=== PATIENT | female | born 1970 | race Caucasian/White ===

== ENCOUNTER 2020-04-22 10:11 | Emergency (ER) | payer OTHER, SELFPAY ==
[2020-04-22 10:15] VITALS: BP 133/82; PULSE 96; RESP 18; TEMP 36.6; O2SAT 98; BMI 20.1
--- NOTE | 2020-04-22 10:26 | ED_ITS ---
HPI - Abdominal Pain <Wilbert AUGUSTO Rider - Last Filed: 04/22/20 13:46> General Chief Complaint: Nausea/Vomiting/Diarrhea Stated Complaint: Dizzy ,throwing up after surgery 3 months ago Time Seen by Provider: 04/22/20 10:14 Source: patient Mode of arrival: Ambulatory Limitations: no limitations History of Present Illness HPI narrative: This is a 49 year female, nonsmoker, who has past medical history significant for anxiety, depression, s/p hemorrhoidectomy with polypectomy 3 months ago presents to ED. patient reports since then patient has runny watery stools with intermittent generalized abdominal pain. Since the hemorrhoids deck LEANA and polypectomy she was on stool softener initially she contributed her symptoms to stool softener, however without taking stool softener watery stools continued. Patient feels very quick urge and at times she does not make it to bathroom in time and has stool incontinence problem. She is currently very busy at work and feeling stressed. She had lost some weight with this symptoms. She feels even depressed from her current symptoms. She denies fever, chills. Yesterday she fell nauseous and had taken Zofran prescribed for postop which somewhat improved her symptoms. She reports feeling weak and lethargic and not feeling generally well. Patient denies black, tarry, bloody stools. So far C diff test was done which was negative. Patient denies chest pain, dyspnea, known exposure to COVID patient's. She has been using Lomotil without much improvement. However, she had 1 episode of formed stool last week. Patient denies camping, taking unusual food or water, near contact with animals around the time her symptoms started. Patient reports she had similar symptoms many years ago when she had upper GI ulcer/bleed. According to the patient, Dr. Rodney has planned to do another stool test and possible endoscopy. Related Data Home Medications Medication Instructions Recorded Confirmed Carolyn 1 tab PO DAILY 04/22/20 04/22/20 Flonase 1 spray INTRANASAL DAILY 04/22/20 04/22/20 diphenoxylate-atropine 1 tab PO PRN PRN 04/22/20 04/22/20 duloxetine 1 mg PO DAILY 04/22/20 04/22/20 ondansetron 1 mg PO PRN PRN MDD 4 04/22/20 04/22/20 Previous Rx's Medication Instructions Recorded ondansetron 4 mg PO Q8H PRN #7 tab 04/22/20 Allergies Allergy/AdvReac Type Severity Reaction Status Date / Time Penicillin Allergy Unknown Uncoded 07/12/17 12:53 Review of Systems <GLORIA GrissomP - Last Filed: 04/22/20 13:46> Review of Systems Narrative: General: Denies fever, chills, fatigue, malaise, sweats. HEENT: Denies sinus pain, ear pain, sore throat, difficulty swallowing, dizziness. Respiratory: Denies dyspnea, cough, wheezing, hemoptysis, sputum. Cardiovascular: Denies chest pain, palpitations, orthopnea, edema. Gastrointestinal: See HPI : Denies dysuria, frequency, incontinence, hematuria, urinary retention. Musculoskeletal: Denies weakness, joint pain or bony pain. Skin: Denies rash, skin lesions, or other. Neurologic: Denies (+) weakness, headache, numbness, change in speech, confusion, seizures, incoordination. Psychiatric: No concerning psychosocial issues. 12-point review of systems is negative except for those stated above. Patient History <GLORIA GrissomP - Last Filed: 04/22/20 13:46> Social History Smoking Status: Never smoker Exam <GLORIA GrissomP - Last Filed: 04/22/20 13:46> Narrative Exam Narrative: GEN: Alert, oriented x 3, thinn appearing, and in no acute dis tress. Head: Normal cephalic, atraumatic. No scalp or temporal tenderness, palpable mass or rash. EYES: Pupils are equal, round, and reactive to light and accommodation. Extraocular muscles are intact bilaterally. There is no subconjunctival hemorrhage, exudate and sclera non-icteric. ENT: Hearing grossly intact. Nose without bleeding, purulent discharge or deviation. Facial sinuses nontender to palpate. Mucous membrane moist, no mucosal lesion. Throat without erythema, tonsillar hypertrophy or exudate. Uvula in midline, airway patent. Neck: Trachea in midline. No JVD, non-tender without lymphadenopathy. No masses or thyroid megaly. Supple, non-tender and no meningeal signs. CARDIAC: Normal regular rate and rhythm without murmurs, gallops, or rubs. No chest wall tenderness. No peripheral edema, cyanosis or pallor. Capillary refill is less than 2 seconds. RESPIRATORY: Lungs are clear to auscultate bilaterally. No cough, wheezes, rales, or rhonchi. No stridor, respiratory distress, increase work of breathing, or accessary muscle used. ABD: Abdomen soft, nontender and non-distended. No guarding or rebound tenderness to palpate. Bowel sounds are normal in all 4 quadrants. There is no palpable masses or organomegaly. Rectal exam done by DANY Mahoney stand-by, appreciated small size external hemorrhoids and had streak of blood obtained on gloved finger during hemoccult test. No stool noticed on gloved finger. EXT: Full painless ROM of all extremities with no loss of sensation, strength, effusion or edema. SKIN: Warm, dry, normal color for patient. No erythema, lesions or rash over visible areas. BACK: Nontender without deformity or crepitance. No flank tenderness. NEUROLOGICAL: Alert and oriented to place, time and person. Sensation and motor function intact bilaterally. No facial droops, dysphasia. PSYCHIATRIC: Good judgement and reason, without hallucinations, abnormal affect or abnormal behaviors during the examination. Patient is not suicidal. Initial Vital Signs Initial Vital Signs: Vital Signs Temperature 97.8 F 04/22/20 10:15 Pulse Rate 96 H 04/22/20 10:15 Respiratory Rate 18 04/22/20 10:15 Blood Pressure 133/82 04/22/20 10:15 Pulse Oximetry 98 04/22/20 10:15 <Vahid Pascual DO - Last Filed: 04/22/20 13:51> Initial Vital Signs Initial Vital Signs: Vital Signs Temperature 97.8 F 04/22/20 10:15 Pulse Rate 96 H 04/22/20 10:15 Respiratory Rate 18 04/22/20 10:15 Blood Pressure 133/82 04/22/20 10:15 Pulse Oximetry 98 04/22/20 10:15 Scores <AUGUSTO Grissom - Last Filed: 04/22/20 13:46> GCS Manny coma scale eye opening: Spontaneous Manny coma scale verbal response: Orientated [place] coma scale motor response: Obey commands [place] coma scale total score: 15 Course <AUGUSTO Grissom - Last Filed: 04/22/20 13:46> Orders Ordered: ED Orders 04/22/20 10:25 EKG-12 Lead Stat 04/22/20 10:45 Complete Blood Count AUTO DIFF Stat Comprehensive Metabolic Panel Stat Lactate (Lactic Acid) Stat Lipase Stat Magnesium Stat 04/22/20 11:35 CT abdomen pelvis w con Stat Discontinued Medications Sodium Chloride (Normal Saline 0.9%) 1,000 mls @ 999 mls/hr IV CONT MARGY Last Infusion: 04/22/20 11:48 Dose: 0 mls/hr Documented by: Admin: 04/22/20 10:41 Dose: 999 mls/hr Documented by: JERRY Ondansetron HCl (Ondansetron 4 Mg Odt) 4 mg SL NOW ONE Stop: 04/22/20 10:26 Last Admin: 04/22/20 10:41 Dose: 4 mg Documented by: JERRY Reevaluation(s) Reevaluation #1: Patient reports nausea improving. Time: 10:48 Reevaluation #2: Patient trying p.o. challenge. Time: 11:48 Vital Signs Vital signs: Vital Signs - 8 hr 04/22/20 10:15 04/22/20 11:35 Temperature 97.8 F Pulse Rate 96 H 71 Respiratory Rate 18 Blood Pressure 133/82 155/74 H Pulse Oximetry 98 100 <Vahid Pascual DO - Last Filed: 04/22/20 13:51> Orders Ordered: ED Orders 04/22/20 10:25 EKG-12 Lead Stat 04/22/20 10:45 Complete Blood Count AUTO DIFF Stat Comprehensive Metabolic Panel Stat Lactate (Lactic Acid) Stat Lipase Stat Magnesium Stat 04/22/20 11:35 CT abdomen pelvis w con Stat Discontinued Medications Sodium Chloride (Normal Saline 0.9%) 1,000 mls @ 999 mls/hr IV CONT MARGY Last Infusion: 04/22/20 11:48 Dose: 0 mls/hr Documented by: Admin: 04/22/20 10:41 Dose: 999 mls/hr Documented by: JERRY Ondansetron HCl (Ondansetron 4 Mg Odt) 4 mg SL NOW ONE Stop: 04/22/20 10:26 Last Admin: 04/22/20 10:41 Dose: 4 mg Documented by: JERRY Vital Signs Vital signs: Vital Signs - 8 hr 04/22/20 10:15 04/22/20 11:35 Temperature 97.8 F Pulse Rate 96 H 71 Respiratory Rate 18 Blood Pressure 133/82 155/74 H Pulse Oximetry 98 100 MDM - Abdominal Pain <Wilbert Wilfredo-AUGUSTO Villar - Last Filed: 04/22/20 13:46> Differential Diagnosis Differential diagnosis: Likely abdominal pain, gastroenteritis and other (Electrolytes imbalance, bladder infection, ACS, IBS, food allergies) Medical Records Attestation: I reviewed the patient's medical records. Lab Data Attestation: I reviewed the patient's lab results. Result diagrams: 04/22/20 10:45 04/22/20 10:45 Labs: Lab Results 04/22/20 04/22/20 04/22/20 Range/Units 10:45 10:45 10:45 WBC 8.0 (4.5-11.0) X10^3/uL RBC 4.63 (4.0-5.2) X10^6/uL Hgb 14.5 (12.0-16.0) g/dL Hct 43.8 (36-46) % MCV 94.7 (80-100) fL MCH 31.3 (26-34) PG MCHC 33.0 (30-36) % RDW 13.5 (11.6-14.8) % Plt Count 247 (150-400) X10^3/uL Neut % (Auto) 74.8 (50-75) % Lymph % (Auto) 18.3 L (25-40) % Young % (Auto) 6.0 (3-14) % Eos % (Auto) 0.4 L (2-4) % Baso % (Auto) 0.5 (0-2) % Neut # (Auto) 5900 (7166-4296) /uL Lymph # (Auto) 1500 (0208-5064) /uL Young # (Auto) 500 (0-900) /uL Eos # (Auto) 0 (0-450) /uL Baso # (Auto) 0 (0-100) /uL Sodium 137 (137-145) mmol/L Potassium 3.8 (3.4-5.1) mmol/L Chloride 109 H (98-107) mmol/L Carbon Dioxide 25 (22-32) mmol/L BUN 17 (7-17) mg/dL Creatinine 0.75 (0.52-1.04) mg/dL Estimated GFR > 60.0 (>60) mL/min BUN/Creatinine Ratio 22.7 H (6-22) Glucose 101 H (70-100) mg/dL Lactate 0.9 (0.7-2.1) mmol/L Calcium 9.3 (8.4-10.2) mg/dL Magnesium (1.6-2.3) mg/dL Total Bilirubin 0.4 (0.2-1.3) mg/dL AST 16 (14-36) IU/L ALT 11 (<35) IU/L Alkaline Phosphatase 23 L (38-126) U/L Total Protein 6.0 L (6.3-8.2) g/dL Albumin 3.7 (3.5-5.0) g/dL Globulin 2.3 (1.7-4.1) g/dL Albumin/Globulin Ratio 1.6 (1.0-2.8) Lipase 285 (23-300) U/L 04/22/20 Range/Units 10:45 WBC (4.5-11.0) X10^3/uL RBC (4.0-5.2) X10^6/uL Hgb (12.0-16.0) g/dL Hct (36-46) % MCV (80-100) fL MCH (26-34) PG MCHC (30-36) % RDW (11.6-14.8) % Plt Count (150-400) X10^3/uL Neut % (Auto) (50-75) % Lymph % (Auto) (25-40) % Young % (Auto) (3-14) % Eos % (Auto) (2-4) % Baso % (Auto) (0-2) % Neut # (Auto) (4715-1017) /uL Lymph # (Auto) (6181-3271) /uL Young # (Auto) (0-900) /uL Eos # (Auto) (0-450) /uL Baso # (Auto) (0-100) /uL Sodium (137-145) mmol/L Potassium (3.4-5.1) mmol/L Chloride (98-107) mmol/L Carbon Dioxide (22-32) mmol/L BUN (7-17) mg/dL Creatinine (0.52-1.04) mg/dL Estimated GFR (>60) mL/min BUN/Creatinine Ratio (6-22) Glucose (70-100) mg/dL Lactate (0.7-2.1) mmol/L Calcium (8.4-10.2) mg/dL Magnesium 1.9 (1.6-2.3) mg/dL Total Bilirubin (0.2-1.3) mg/dL AST (14-36) IU/L ALT (<35) IU/L Alkaline Phosphatase (38-126) U/L Total Protein (6.3-8.2) g/dL Albumin (3.5-5.0) g/dL Globulin (1.7-4.1) g/dL Albumin/Globulin Ratio (1.0-2.8) Lipase (23-300) U/L Point of care testing: Point of Care Testing Test Results Negative Urine Dip Bedside Urine Glucose Negative Bedside Urine Bilirubin - Negative Bedside Urine Ketone - Negative Urine Specific Stratton 1.015 Bedside Urine Occult Blood - Negative Bedside Urine pH 6.0 Bedside Urine Protein - Negative Bedside Urine Urobilinogen - Negative Bedside Urine Nitrite - Negative Bedside Urine Leukocytes - Negative Esterase Imaging Data CT scan - abdomen/pelvis: Radiologist's Impression: [address] [id number] Scan ReportSigned Patient: Светлана Bradford#: [id number]: 1970Acct:[id number]/Sex: 49 / FDate of Service: 04/22/20Loc: ED Accession Number: [id number] Procedure: CT abdomen pelvis w con Ordering Provider: Wilbert Rider [facility] PROCEDURE: CT ABDOMEN PELVIS W CON INDICATIONS: abd pain, n/v/d TECHNIQUE: After the administration of intravenous contrast, 5 mm thick sections acquired from the diaphragm to the symphysis. 5 mm coronal and sagittal reformats were acquired. For radiation dose reduction, the following was used: automated exposure control, adjustment of mA and/or kV according to patient size. COMPARISON: None. FINDINGS: Image quality: Excellent. ABDOMEN: Lung bases: Lung bases are clear. Heart size is normal. Solid organs: Liver is normal in size and enhancement. Gallbladder mucosa appears slightly hyperemic. Biliary system is non dilated. Pancreas enhances normally. Spleen is normal in size and enhancement. No adrenal nodules. Kidneys demonstrate normal size and enhancement, without hydronephrosis. Peritoneum and bowel: Bowel loops demonstrate normal wall thickness and caliber. No free fluid or air. Nodes and vessels: No retroperitoneal or mesenteric adenopathy by size criteria. Aorta and inferior vena cava are normal in size. Miscellaneous: No ventral hernias. PELVIS: Genitourinary: Bladder wall thickness is normal. Miscellaneous: No inguinal hernias or adenopathy. Normal appendix found right lower quadrant. Bones: No suspicious bony lesions. No vertebral body compression fractures. IMPRESSION: Normal appendix found right lower quadrant. Note is made of slight hyperemia of the gallbladder mucosa, but a calcified gallstone or evidence of adjacent free fluid is not found. Please note that radiolucent gallstones may not be accurately detected by CT scanning and depending on the clinical status follow-up by gallbladder ultrasound may be warranted. Dictated by: Sarmad Albarran M.D. on 04/22/2020 at 11:43 Approved by: Sarmad Albarran M.D. on 04/22/2020 at 11:46 ECG Data Attestation: I personally reviewed and interpreted this ECG as follows: Prior ECG tracings: not available for review Interpretation: Sinus Alphonse rate at 57. Normal Thoreau. NM interval 132, QRS duration 82, QT/QTC 400/[address] changes MDM Narrative Medical decision making narrative: This is a 49-year-old female who presents to ED with chronic diarrhea with occasional stool incontinence due to urgency for last 3 months after hemorrhoidectomy and polypectomy with chief complain of generalized not feeling well, lethargic, occasional abdominal pain, nausea. Physical exam was unremarkable. Patient's nausea was well managed with 1 dose of Zofran IV. Labs are assuring. No indications for UTI. Patient was not able to provide stool sample in ED and states she had taken Lomotil before coming into ED. appreciated small external hemorrhoids with scant amount of bleeding during rectal exam, no stools felt and obtained from the rectal exam. Abdomen/pelvis CT imaging test ordered and obtained without acute findings. Patient denies changing diet or incorporating new food in her diet. Patient tried probiotics but reports symptoms appears to be worse so she is not taking it at this time. Patient advised to try bland diet, bananas, peanut butter or etc to bulk up the stool consistency. Return precautions were discussed with patient and patient highly advised to follow-up with GI specialist. She verbalized understanding in agreement with the treatment plan. <Vahid Pascual, DO - Last Filed: 04/22/20 13:51> Lab Data Labs: Lab Results 04/22/20 04/22/20 04/22/20 Range/Units 10:45 10:45 10:45 WBC 8.0 (4.5-11.0) X10^3/uL RBC 4.63 (4.0-5.2) X10^6/uL Hgb 14.5 (12.0-16.0) g/dL Hct 43.8 (36-46) % MCV 94.7 (80-100) fL MCH 31.3 (26-34) PG MCHC 33.0 (30-36) % RDW 13.5 (11.6-14.8) % Plt Count 247 (150-400) X10^3/uL Neut % (Auto) 74.8 (50-75) % Lymph % (Auto) 18.3 L (25-40) % Young % (Auto) 6.0 (3-14) % Eos % (Auto) 0.4 L (2-4) % Baso % (Auto) 0.5 (0-2) % Neut # (Auto) 5900 (1624-7235) /uL Lymph # (Auto) 1500 (3019-7689) /uL Young # (Auto) 500 (0-900) /uL Eos # (Auto) 0 (0-450) /uL Baso # (Auto) 0 (0-100) /uL Sodium 137 (137-145) mmol/L Potassium 3.8 (3.4-5.1) mmol/L Chloride 109 H (98-107) mmol/L Carbon Dioxide 25 (22-32) mmol/L BUN 17 (7-17) mg/dL Creatinine 0.75 (0.52-1.04) mg/dL Estimated GFR > 60.0 (>60) mL/min BUN/Creatinine Ratio 22.7 H (6-22) Glucose 101 H (70-100) mg/dL Lactate 0.9 (0.7-2.1) mmol/L Calcium 9.3 (8.4-10.2) mg/dL Magnesium (1.6-2.3) mg/dL Total Bilirubin 0.4 (0.2-1.3) mg/dL AST 16 (14-36) IU/L ALT 11 (<35) IU/L Alkaline Phosphatase 23 L (38-126) U/L Total Protein 6.0 L (6.3-8.2) g/dL Albumin 3.7 (3.5-5.0) g/dL Globulin 2.3 (1.7-4.1) g/dL Albumin/Globulin Ratio 1.6 (1.0-2.8) Lipase 285 (23-300) U/L 04/22/20 Range/Units 10:45 WBC (4.5-11.0) X10^3/uL RBC (4.0-5.2) X10^6/uL Hgb (12.0-16.0) g/dL Hct (36-46) % MCV (80-100) fL MCH (26-34) PG MCHC (30-36) % RDW (11.6-14.8) % Plt Count (150-400) X10^3/uL Neut % (Auto) (50-75) % Lymph % (Auto) (25-40) % Young % (Auto) (3-14) % Eos % (Auto) (2-4) % Baso % (Auto) (0-2) % Neut # (Auto) (3964-0181) /uL Lymph # (Auto) (6438-0561) /uL Young # (Auto) (0-900) /uL Eos # (Auto) (0-450) /uL Baso # (Auto) (0-100) /uL Sodium (137-145) mmol/L Potassium (3.4-5.1) mmol/L Chloride (98-107) mmol/L Carbon Dioxide (22-32) mmol/L BUN (7-17) mg/dL Creatinine (0.52-1.04) mg/dL Estimated GFR (>60) mL/min BUN/Creatinine Ratio (6-22) Glucose (70-100) mg/dL Lactate (0.7-2.1) mmol/L Calcium (8.4-10.2) mg/dL Magnesium 1.9 (1.6-2.3) mg/dL Total Bilirubin (0.2-1.3) mg/dL AST (14-36) IU/L ALT (<35) IU/L Alkaline Phosphatase (38-126) U/L Total Protein (6.3-8.2) g/dL Albumin (3.5-5.0) g/dL Globulin (1.7-4.1) g/dL Albumin/Globulin Ratio (1.0-2.8) Lipase (23-300) U/L Point of care testing: Point of Care Testing Test Results Negative Urine Dip Bedside Urine Glucose Negative Bedside Urine Bilirubin - Negative Bedside Urine Ketone - Negative Urine Specific Stratton 1.015 Bedside Urine Occult Blood - Negative Bedside Urine pH 6.0 Bedside Urine Protein - Negative Bedside Urine Urobilinogen - Negative Bedside Urine Nitrite - Negative Bedside Urine Leukocytes - Negative Esterase Discharge Plan Departure Patient Disposition: Home Clinical Impression: Nausea, Vomiting, and Diarrhea Abdominal pain Qualifiers: Abdominal location: unspecified location Qualified Code(s): R10.9 - Unspecified abdominal pain Instructions: Diarrhea, DI for Abdominal Pain-Adult Activity Restrictions/Additional Instructions: You have been diagnosed with [abdominal pain, nausea and chronic diarrhea.]. What to do: *Take your medications as directed. Please take Zofran as needed for nausea and take Lomotil that you have as needed for diarrhea. This medication has been transmitted to [facility]. *Follow up with your primary care provider in 2-3 days, call for an appointment. Let them know you were seen in the ED and that we asked you to be seen in follow up. *Return to ED if you have any new, worsening, or concerning symptoms, such as [chest pain, breathing difficulty, near syncope, blood in her stool or vomit, fever or any acute concerns]. Prescriptions: New ondansetron 4 mg tablet,disintegrating 4 mg PO Q8H PRN (Reason: nausea and vomiting) Qty: 7 RF: 0 No Action Carolyn 1 tab PO DAILY RF: 0 diphenoxylate-atropine 2.5-0.025 mg tablet 1 tab PO PRN PRN (Reason: Diarrhea) RF: 0 ondansetron 4 mg tablet,disintegrating 1 mg PO PRN MDD 4 PRN (Reason: Diarrhea) RF: 0 duloxetine 30 mg capsule,delayed release(DR/EC) 1 mg PO DAILY RF: 0 Flonase 1 spray intranasal DAILY RF: 0 Referrals: [facility] [Outside] Jazmyn Rodney MD [Non-Staff] - <Vahid Pascual DO - Last Filed: 04/22/20 13:51> Cosign ED Attending Cosignature Attestation: Dr Pascual Co-Sign Statement: I was available for consultation during this patient's emergency department visit. This chart is signed by myself for administrative purposes only. I did not have direct contact with this patient during this visit. They were seen independently by the APC.
[2020-04-22] MEDS: ONDANSETRON 4 MG ODT SL (10:41)
[2020-04-22] MEDS: SODIUM CHLORIDE 0.9% 1,000 ML 999 ML IV (10:41)
[2020-04-22 10:59] LABS: Add Manual Diff / Slide Review NO; Basophils Absolute Auto 0 /uL (0-100); Basophils Percent Auto 0.5 % (0-2); Eosinophils Absolute Auto 0 /uL (0-450); Eosinophils Percent Auto 0.4 % (2-4); Hematocrit 43.8 % (36-46); Hemoglobin 14.5 g/dL (12.0-16.0); Lymphocytes Absolute Auto 1500 /uL (1100-4500); Lymphocytes Percent Auto 18.3 % (25-40); Mean Corpuscular Hemoglobin 31.3 PG (26-34); Mean Corpuscular Volume 94.7 fL (80-100); Monocytes Absolute Auto 500 /uL (0-900); Neutrophils Absolute Auto 5900 /uL (1500-7000); Neutrophils Percent Auto 74.8 % (50-75); Platelet Count 247 X10^3/uL (150-400); Red Blood Cell Count 4.63 X10^6/uL (4.0-5.2); Red Cell Distribution Width 13.5 % (11.6-14.8)
[2020-04-22 11:10] LABS: Lactate (Lactic Acid) 0.9 mmol/L (0.7-2.1); Magnesium 1.9 mg/dL (1.6-2.3)
[2020-04-22 11:12] LABS: Alanine Aminotransferase 11 IU/L (<35); Albumin 3.7 g/dL (3.5-5.0); Albumin Globulin Ratio 1.6 (1.0-2.8); Alkaline Phosphatase 23 U/L (38-126); Aspartate Aminotransferase 16 IU/L (14-36); BUN Creatinine Ratio 22.7 (6-22); Bilirubin Total 0.4 mg/dL (0.2-1.3); Blood Urea Nitrogen 17 mg/dL (7-17); Calcium 9.3 mg/dL (8.4-10.2); Carbon Dioxide 25 mmol/L (22-32); Chloride 109 mmol/L (98-107); Estimated Glomerular Filt Rate > 60.0 mL/min (>60); Globulin 2.3 g/dL (1.7-4.1); Glucose 101 mg/dL (70-100); HEMOLYSIS < 15 (0-50); Lipase 285 U/L (23-300); Potassium 3.8 mmol/L (3.4-5.1); Sodium 137 mmol/L (137-145)
[2020-04-22 11:35] VITALS: BP 155/74; PULSE 71; O2SAT 100
--- NOTE | 2020-04-22 11:35 | DI.CT.S_ITS ---
PROCEDURE: CT ABDOMEN PELVIS W CON INDICATIONS: abd pain, n/v/d TECHNIQUE: After the administration of intravenous contrast, 5 mm thick sections acquired from the diaphragm to the symphysis. 5 mm coronal and sagittal reformats were acquired. For radiation dose reduction, the following was used: automated exposure control, adjustment of mA and/or kV according to patient size. COMPARISON: None. FINDINGS: Image quality: Excellent. ABDOMEN: Lung bases: Lung bases are clear. Heart size is normal. Solid organs: Liver is normal in size and enhancement. Gallbladder mucosa appears slightly hyperemic. Biliary system is non dilated. Pancreas enhances normally. Spleen is normal in size and enhancement. No adrenal nodules. Kidneys demonstrate normal size and enhancement, without hydronephrosis. Peritoneum and bowel: Bowel loops demonstrate normal wall thickness and caliber. No free fluid or air. Nodes and vessels: No retroperitoneal or mesenteric adenopathy by size criteria. Aorta and inferior vena cava are normal in size. Miscellaneous: No ventral hernias. PELVIS: Genitourinary: Bladder wall thickness is normal. Miscellaneous: No inguinal hernias or adenopathy. Normal appendix found right lower quadrant. Bones: No suspicious bony lesions. No vertebral body compression fractures. IMPRESSION: Normal appendix found right lower quadrant. Note is made of slight hyperemia of the gallbladder mucosa, but a calcified gallstone or evidence of adjacent free fluid is not found. Please note that radiolucent gallstones may not be accurately detected by CT scanning and depending on the clinical status follow-up by gallbladder ultrasound may be warranted. Dictated by: Sarmad Albarran M.D. on 04/22/2020 at 11:43 Approved by: Sarmad Albarran M.D. on 04/22/2020 at 11:46
== END 2020-04-22 12:28 | disposition home or self-care (01) ==
PROVIDERS: Emergency Provider Nurse Practitioner Family; Family Provider Family Medicine
DX: R11.2 Nausea with vomiting, unspecified (principal); R19.7 Diarrhea, unspecified; R42 Dizziness and giddiness; F41.9 Anxiety disorder, unspecified; R10.9 Unspecified abdominal pain
CPT/HCPCS: 36415; 74177; 80053; 81003; 81025; 83605; 83690; 83735; 85025; 93005; 93010; 96360; 99284; Q9967

== ENCOUNTER 2022-09-02 16:00 | Emergency (ER) | payer OTHER, SELFPAY ==
[2022-09-02 16:09] VITALS: BP 166/97; PULSE 87; RESP 18; TEMP 36.7; O2SAT 100; BMI 23.3
--- NOTE | 2022-09-02 16:28 | DI.CT.S_ITS ---
PROCEDURE: CT HEAD/BRAIN WO CON INDICATIONS: headache w/ tingling TECHNIQUE: Noncontrast 4.5 mm thick angled axial sections acquired from the foramen magnum to the vertex, with coronal and sagittal reformats. For radiation dose reduction, the following was used: automated exposure control, adjustment of mA and/or kV according to patient size. COMPARISON: None. FINDINGS: Image quality: Excellent. CSF spaces: Basal cisterns are patent. No extra-axial fluid collections. Ventricles are normal in size and shape. Brain: No midline shift. No intracranial masses or hemorrhage. Streeter-white matter interface is normal. Skull and face: Calvarium and visualized facial bones are intact, without suspicious lesions. Sinuses: Visualized sinuses and mastoids are clear. IMPRESSION: No acute intracranial process Dictated by: Devin Boykin M.D. on 09/02/2022 at 16:52 Approved by: Devin Boykin M.D. on 09/02/2022 at 16:53
--- NOTE | 2022-09-02 19:03 | ED.HA ---
HPI - Headache General Chief Complaint: Headache Stated Complaint: Migraine Time Seen by Provider: 09/02/22 18:57 Source: patient Mode of arrival: Ambulatory Limitations: no limitations History of Present Illness HPI Narrative: 52-year-old female. Has a history of migraines. Is here for evaluation of headache that started earlier today. States it does feel somewhat difficile migraine. She does have tingling to the left side her face which has resolved. Also has some twitching to her left. No fevers. Does have some neck pain but she feels that this is most likely because of the headache. No chest pain shortness of breath. Related Data Home Medications Medication Instructions Recorded Confirmed Carolyn 1 tab PO DAILY 04/22/20 04/22/20 Flonase 1 spray intranasal DAILY 04/22/20 04/22/20 diphenoxylate-atropine 2.5 1 tab PO PRN PRN Diarrhea 04/22/20 04/22/20 mg-0.025 mg tablet duloxetine 30 mg capsule,delayed 1 mg PO DAILY 04/22/20 04/22/20 release ondansetron 4 mg disintegrating 1 mg PO PRN PRN Diarrhea 04/22/20 04/22/20 tablet Previous Rx's Medication Instructions Recorded ondansetron 4 mg disintegrating 4 mg PO Q8H PRN nausea and 04/22/20 tablet vomiting #7 tabs Allergies Allergy/AdvReac Type Severity Reaction Status Date / Time Penicillin Allergy Unknown Uncoded 09/02/22 16:13 Review of Systems Constitutional Constitutional: Reports system reviewed and no additional complaints, except as documented Eyes Eyes: Reports system reviewed and no additional complaints, except as documented ENT Ears, Nose, Mouth, and Throat: Reports system reviewed and no additional complaints, except as documented Cardiovascular Cardiovascular: Reports system reviewed and no additional complaints, except as documented Respiratory Respiratory: Reports system reviewed and no additional complaints, except as documented Gastrointestinal Gastrointestinal: Reports system reviewed and no additional complaints, except as documented Integumentary/Breasts Skin/Breast: Reports system reviewed and no additional complaints, except as documented Neurologic Neurologic: Reports system reviewed and no additional complaints, except as documented Hematologic/Lymphatic On Anticoagulants: No Patient History Social History Smoking Status: Never smoker Smoking Status: Never smoker alcohol intake frequency: 0-2 drinks per day Substance Use Type: does not use Exam Initial Vital Signs Initial Vital Signs: Vital Signs Temperature 98.1 F 09/02/22 16:09 Pulse Rate 87 09/02/22 16:09 Respiratory Rate 18 09/02/22 16:09 Blood Pressure 166/97 H 09/02/22 16:09 Pulse Oximetry 100 09/02/22 16:09 Oxygen Delivery Method Room Air 09/02/22 16:09 Const General: cooperative and healthy appearing HENKS Head: normal to inspection and normocephalic Eyes General: Yes appearance normal, both eyes and all related structures Resp Effort & Inspection: normal respiratory effort Cardio Rate: regular rate Skin General: no rashes or lesions noted Neuro General: patient alert, patient awake and moves all extremities Extrem General: normal to inspection Course Orders Ordered: Discontinued Medications Diphenhydramine HCl (Diphenhydramine 50 Mg/Ml Vial) 25 mg IV NOW ONE Stop: 09/02/22 19:05 Last Admin: 09/02/22 19:21 Dose: 25 mg Documented By: PATRICIO Sodium Chloride (Normal Saline 0.9%) 1,000 mls @ 1,000 mls/hr IV BOLUS ONE Stop: 09/02/22 20:03 Last Infusion: 09/02/22 20:28 Dose: 0 mls/hr Documented By: Admin: 09/02/22 19:21 Dose: 1,000 mls/hr Documented By: PATRICIO Ketorolac Tromethamine (Ketorolac 30 Mg/Ml Vial) 30 mg IV NOW ONE Stop: 09/02/22 19:05 Last Admin: 09/02/22 19:22 Dose: 30 mg Documented By: PATRICIO Metoclopramide HCl (Metoclopramide 10 Mg/2 Ml Inj) 10 mg IV NOW ONE Stop: 09/02/22 19:05 Last Admin: 09/02/22 19:22 Dose: 10 mg Documented By: PATRICIO Vital Signs Vital signs: Vital Signs - 8 hr 09/02/22 20:31 Pulse Rate 80 Respiratory Rate 16 Blood Pressure 160/86 H Pulse Oximetry 100 Oxygen Delivery Method Room Air MDM - Headache Imaging Data CT scan - head: Radiologist's Impression: PROCEDURE:? CT HEAD/BRAIN WO CON ? INDICATIONS:? headache w/ tingling ? TECHNIQUE:? Noncontrast 4.5 mm thick angled axial sections acquired from the foramen magnum to the vertex, with coronal and sagittal reformats.? For radiation dose reduction, the following was used:? automated exposure control, adjustment of mA and/or kV according to patient size.? ? COMPARISON:? None. ? FINDINGS:? Image quality:? Excellent.? ? CSF spaces:? Basal cisterns are patent.? No extra-axial fluid collections.? Ventricles are normal in size and shape.? ? Brain:? No midline shift.? No intracranial masses or hemorrhage.? Streeter-white matter interface is normal.? ? Skull and face:? Calvarium and visualized facial bones are intact, without suspicious lesions.? ? Sinuses:? Visualized sinuses and mastoids are clear.? ? IMPRESSION:? No acute intracranial process MDM Narrative Medical decision making narrative: Patient's head CT was unremarkable. Patient reports almost complete resolution of symptoms after medications provided here in the emergency department. I have low suspicion for meningitis. Indication for lumbar puncture. No indication for further workup here in the emergency department. Patient states she is feeling well enough to go. She was given return precautions. She expressed understanding agreement. Discharge Plan Departure Patient Disposition: Home Clinical Impression: Headache Instructions: DI for Headache Activity Restrictions/Additional Instructions: I do recommend that you continue to take all of your medications as directed. Try to get a good night sleep tonight. You can take Tylenol or ibuprofen as well. Return to the emergency department for new or worsening symptoms. Prescriptions: No Action Carolyn 1 tab PO DAILY diphenoxylate-atropine 2.5-0.025 mg tablet 1 tab PO PRN PRN (Reason: Diarrhea) ondansetron 4 mg tablet,disintegrating 1 mg PO PRN MDD 4 PRN (Reason: Diarrhea) duloxetine 30 mg capsule,delayed release(DR/EC) 1 mg PO DAILY Patient Comments: take 1 capsule by mouth once daily Flonase 1 spray intranasal DAILY ondansetron 4 mg tablet,disintegrating 4 mg PO Q8H PRN (Reason: nausea and vomiting) Qty: 7 0RF Stand Alone Forms: Patient Portal/API
[2022-09-02] MEDS: SODIUM CHLORIDE 0.9% 1,000 ML 1000 ML IV (19:21)
[2022-09-02] MEDS: diphenhydrAMINE 50 MG/ML VIAL 25 MG IV (19:21)
[2022-09-02] MEDS: METOCLOPRAMIDE 10 MG/2 ML INJ IV (19:22)
[2022-09-02] MEDS: KETOROLAC 30 MG/ML VIAL IV (19:22)
[2022-09-02 20:31] VITALS: BP 160/86; PULSE 80; RESP 16; O2SAT 100
== END 2022-09-02 20:33 | disposition home or self-care (01) ==
PROVIDERS: Emergency Provider Emergency Medicine; Family Provider Family Medicine
DX: R51.9 Headache, unspecified (principal)
CPT/HCPCS: 36415; 70450; 96374; 96375; 99284; J1200; J1885; J2765